=== PATIENT | male | born 1985 | race Caucasian/White ===

== ENCOUNTER 2019-12-31 12:57 | Emergency (ER) | payer OTHER, SELFPAY ==
[2019-12-31] VITALS (7 sets, daily range): BP systolic 127–183; BP diastolic 53–108; PULSE 88–106; RESP 15–26; TEMP 37.1; O2SAT 95–100; BMI 30.4
--- NOTE | 2019-12-31 13:24 | CT_ITS ---
STUDY: CT ABDOMEN AND PELVIS WITH CONTRAST REASON FOR EXAM: Male, 34 years old. RECTAL PAIN RADIATION DOSAGE (If Supplied By Facility): CTDIvol = ( 13.02 ) mGy, DLP = ( 888.61 ) mGycm TECHNIQUE: Transaxial images were obtained from the dome of the diaphragm to the symphysis pubis without oral contrast. Oral and amp; IV GASTROGRAFIN and amp; 100ML ISOVUE 370 was administered. Sagittal and coronal images were reconstructed. Individualized dose optimization techniques were used for this CT. COMPARISON: None. FINDINGS: The visualized lung bases are unremarkable. The visualized portions of the heart are within normal limits. Normal liver. Normal gallbladder and extrahepatic biliary system. Normal spleen. Normal pancreas. Normal bilateral adrenal glands. Normal right kidney. Normal left kidney. Normal visualized stomach. Normal small intestine. There is asymmetric wall thickening at the rectum and surrounding perirectal mesentery stranding/inflammation. Mild presacral fluid. 5.3 x 3.5 x 3.0 cm collection may be an abscess at the anus. The appendix is visualized and appears normal. Normal abdominal aorta. Normal inferior vena cava. Normal retroperitoneum. Normal urinary bladder. Normal abdominal wall. Normal osseous structures. CT/Abdomen/Pelvis WITH Contrast IMPRESSION: There is asymmetric wall thickening at the rectum and surrounding perirectal mesentery stranding/inflammation. Mild presacral fluid. A collection may be an abscess at the anus. Electronically Signed: Brooks Murillo DO at 14:56 EDT Tel [phone], Service support ,
[2019-12-31] MEDS: 0.9% Normal Saline 1,000 ML 125 ML IV (13:52)
[2019-12-31 14:01] LABS: Absolute Lymphocyte Count 1.33 X10^3/uL (0.83-4.51); Absolute Neutrophil Count 8.2 X10^3/uL (2.0-7.7); Basophil# 0.05 X10^3/uL; Basophil% 0.4 % (0-1); Eosinophil# 0.05 X10^3/uL; Eosinophils% 0.4 % (0-5); Hematocrit 42.8 % (40-54); Hemoglobin 14.4 g/dL (13.0-16.5); Lymphocyte # 1.33 X10^3/ul (4.0); Lymphocyte % 11.8 % (19-41); Mean Corp Hgb Conc 33.6 g/dL (32-36); Mean Corpuscular Hgb 30.3 pg (27.0-32.0); Mean Corpuscular Volume 90.1 fL (80-94); Mean Platelet Vol. 9.1 fl (6.2-12.0); Monocyte# 1.61 X10^3/uL; Monocyte% 14.3 % (0-10); NRBC Flagged by Analyzer 0 % (0-5); Neutrophil # 8.16 X10^3/uL (2.7-7.7); Neutrophil % 72.7 % (47-70); POSITIVE DIFFERENTIAL YES; Platelet Count 267 K/mm3 (150-450); RBC Distribution Width CV 12.1 % (11.6-14.6); RBC Distribution Width SD 39.5 fl (35.1-43.9); Red Blood Count 4.75 M/mm3 (4.6-6.2); White Blood Count 11.3 K/mm3 (4.4-11.0)
[2019-12-31 14:12] LABS: Anion Gap 6 (5-15); BUN 10 mg/dL (7-18); BUN/Creat Ratio 10.8 RATIO (10-20); Calcium,Total 9.8 mg/dL (8.5-10.1); Chloride 102 mmol/L (98-107); Creatinine, Serum 0.93 mg/dL (0.70-1.30); EST Glomerular Filtration Rate 99 mL/min (>60); Est Glom Filt Rate - Afr Amer 119 mL/min (>60); Estimated Creatinine Clearance 118.08 ml/min; Glucose 109 mg/dL (74-106); Potassium 3.7 mmol/L (3.5-5.1); Sodium Level 136 mmol/L (136-145)
[2019-12-31 14:19] LABS: Differential Indicated SCAN CRITERIA MET; Erythrocyte Sedimentation Rate 22 mm/hr (0-15)
[2019-12-31 14:20] LABS: Bacteria 0 SEEN /hpf (None Seen); Red Blood Cells-Urine 0 SEEN /hpf (0-5); Squamous Epithelial Cells - UA 0 SEEN /hpf (0-5)
[2019-12-31 14:20] LABS: Lactic Acid 1.5 mmol/L (0.4-1.9)
[2019-12-31 14:23] LABS: Color, Urine Yellow (Yellow); Glucose, Dipstick Normal (Normal); Ketone-Dipstick 15 mg/dl (Negative); Leukocyte Esterase-Dipstick 25 /ul (Negative); Nitrite-Dipstick Negative (Negative); Occult Blood-Urine Negative /ul (Negative); Protein-Dipstick 30 mg/dl (Negative); Urine Clarity Clear (Clear); Urine Urobilinogen Normal (Normal)
[2019-12-31 14:25] LABS: Urine Bilirubin Dipstick 1 mg/dL (Negative)
[2019-12-31 14:29] LABS: Mucous, Urine 2+ /hpf (<or=2+); White Blood Cells 0-5 SEEN /hpf (0-5)
[2019-12-31 14:31] LABS: Differential Comment SCANNED
--- NOTE | 2019-12-31 15:22 | ED.DCSUM_ITS ---
- ER Visit Summary Date of Service: 12/31/19 Chief Complaint: [Rectal pain] History of Present Illness: The patient is a 34 M [presents to the emergency department with pain in his rectum for the last 6 days. Patient denies any trauma to his rectum. He denies inserting anything into his rectum. Patient's had subjective fever for several days and yesterday he bought a thermometer and noted that his temperature was up to 102.5. Patient states that a week ago he had some blood in his stool but then that resolved. Patient denies any abdominal pain. He has no medical history. No family history of inflammatory bowel disease. Denies urinary symptoms.] Physical Examination: [HEENT-PERRLA, EOMI. Cranial nerves II through XII grossly intact. TMs clear. Mucous membranes moist. No adenopathy. Cardiovascular-regular rate and rhythm without murmur or ectopy Lungs-clear to auscultation, chest wall stable without crepitus or subcu emphysema Abdomen-normoactive bowel sounds, soft, nontender, no rebound or rigidity, no peritoneal signs. Rectal exam-patient has a fullness to the posterior wall of the rectum that is very tender to palpation. Patient otherwise had no rectal masses noted. No fissures noted. No hemorrhoids noted. Extremities-intact ?4, normal range of motion, normal pulses, atraumatic] Test Results: [ABC with differential obtained showed a white blood cell count of 11.3, hemoglobin 14, hematocrit 43, platelet 267. Chemistries unremarkable. LFTs were normal. Sed rate was 22. CT scan of the abdomen pelvis with IV and p.o. contrast ordered showed thickening of the rectum with suspected rectal abscess.] Emergency Department Course and Treatment: [Patient was ordered Zosyn 4.5 g IV. Patient did not want anything for pain. I did discuss case with surgeon on- call Dr. Karon Garcia who will present to the emergency department to evaluate patient.] Treatment Plan: [Patient will be evaluated by the surgeon in the department. Care of patient turned over to evening physician] Disposition: [Pending evaluation by surgeon] Impression: [Proctitis Rectal abscess] This note was generated with [employer] dictation software. It may contain incorrect words, spelling, and punctuation that were not noted in review of the chart prior to signing <Luana Samaniego - Last Filed: 12/31/19 16:00> - ER Visit Summary Date of Service: 12/31/19 Chief Complaint: [] History of Present Illness: The patient is a 34 M [] Physical Examination: [] Test Results: [] Emergency Department Course and Treatment: Patient was signed out to me by the morning physician. The surgeon wanted to do an exam under anesthesia with incision and drainage. Risks benefits and alternatives to propofol were given. Patient signed consent. The patient was given a total of 400 mg of propofol and 40 to 50 mg increments to obtain adequate sedation. His blood pressure and pulse ox were normal throughout the procedure. The surgeon was able to drain a lot of purulent material from the area. Patient will be given Augmentin and oxycodone for home. He is going to follow-up Thursday morning with the surgeon Treatment Plan: [] Disposition: Discharge Impression: Rectal abscess This note was generated with [employer] dictation software. It may contain incorrect words, spelling, and punctuation that were not noted in review of the chart prior to signing <Hua Kuo - Last Filed: 12/31/19 16:57> ED Disposition <Luana Samaniego - Last Filed: 12/31/19 16:00> <Hua Kuo - Last Filed: 12/31/19 16:57> - Plan for ED Patient: Disposition: Home or Assisted Living Instructions: ED ABSCESS Laisha-Anal IandD Prescriptions: Amox/Clavulanate Tablet [Augmentin Tablet] 875 mg PO Q12H #20 tab Transmission Status: Pending to [facility] Oxycodone [Oxyir] 5 mg PO Q6H PRN PRN 3 Days #12 tablet PRN Reason: Pain/Inflammation Transmission Status: Sent to [facility] Referrals: Care Physician,No Primary [Primary Care Provider] -
--- NOTE | 2019-12-31 15:44 | PCM.HP.STD ---
History of Present Illness Date of Admission: 12/31/19 - DC'd from ER same day The patient is a 34 year old M presented to the ER due to rectal pain starting on Thursday. Patient states on Thursday or he started to feel feverish, but did not take his temperature. Patient denies any respiratory symptoms. Patient's labs revealed a leukocytosis of 11.2. CT abdomen pelvis was done which showed a likely rectal abscess. Patient states he is never had a colonoscopy before. His dad did have Crohn's disease and was diagnosed with colon cancer at age 53. Patient states in the last 6 months he would occasionally have bright red blood per rectum a good amount for 1 to 2 days and then it would stop. Patient denies having any pain at this time denies any abdominal pain. Patient denies any rectal bleeding since Thursday when the rectal pain began. Past Medical History Past Medical History (Chronic Problems): Chronic Problems (Last Reviewed 01/02/20 @ 09:59 by Maritza Hope) FH: colon cancer in first degree relative <60 years old (Chronic) Father diagnosed at age 53 FHx: Crohn's disease (Chronic) Father Medical History: Medical History (Last Reviewed 01/02/20 @ 09:59 by Maritza Hope) Rectal abscess (Acute) K61.1 Allergies No Known Allergies Allergy (Verified 12/31/19 12:58) Home Medications: Ambulatory Orders Medication Instructions Recorded Amox/Clavulanate Tablet [Augmentin 875 mg PO Q12H #20 tab 12/31/19 Tablet] Oxycodone [Oxyir] 5 mg PO Q6H PRN PRN 3 Days #12 tab 12/31/19 Surgical History: Surgical History (Last Reviewed 01/02/20 @ 09:59 by Maritza Hope) History of incision and drainage (Acute) Z98.890 Rectal abscess- 12/31/19 Psychiatric History: No pertinent psych hx Smoking Status: Never smoker - *Family History Maternal History Items: No pertinent history Review of Systems Constitutional: Denies: Anorexia Eyes: Denies: Blurred vision HEENT: Denies: Difficulty Swallowing Cardiovascular: Denies: Chest Pain Respiratory: Denies: Shortness of Breath Gastrointestinal: Reports: Hematochezia, - - Rectal pain. Denies: Abdominal Pain Genitourinary: Denies: Dysuria Skin: Denies: Rash Neurological: Denies: Balance problems Psychiatric: Denies: Anxiety, Depression Hematologic/ Lymphatic: Denies: Easy Bruising VTE Information - Inpt Only VTE Present on Admission: No - Physical Exam Vitals/I&O's: Vital Signs Temp Pulse Resp BP Pulse Ox 98.8 F 95 17 150/105 H 95 12/31/19 12:58 12/31/19 12:58 12/31/19 12:58 12/31/19 12:58 12/31/19 12:58 Oxygen Delivery Method Room Air Weight: 218 lb 11.177 oz Body Mass Index (BMI) 30.4 General: Alert, Oriented x3, Cooperative, No apparent distress HEENT: Atraumatic Lungs: Normal air movement Cardiovascular: Regular rate Abdomen: Soft, Non Tender, Non-Distended, - - Rectal exam under anesthesia patient does have fullness about 4-8 cm in the anus at about 9:00. No obvious hemorrhoids or fissures appreciated. Extremities: No clubbing, No cyanosis, No edema Skin: No rashes Neurological: Cranial nerves II-XII grossly intact Psych/Mental Status: Normal Affect Laboratory Results 12/31/19 13:45: WBC 11.3 H, RBC 4.75, Hgb 14.4, Hct 42.8, MCV 90.1, MCH 30.3, MCHC 33.6, RDW Std Deviation 39.5, RDW Coeff of Pasquale 12.1, Plt Count 267, MPV 9.1, Immature Gran % (Auto) 0.400, Neut % (Auto) 72.7 H, Lymph % (Auto) 11.8 L, Teller % (Auto) 14.3 H, Eos % (Auto) 0.4, Baso % (Auto) 0.4, Absolute Neuts (auto) 8.2 H, Absolute Lymphs (auto) 1.33, Nucleated RBC % 0, Differential Comment SCANNED, Diff Path Review December, ESR 22 H 12/31/19 13:45: Sodium 136, Potassium 3.7, Chloride 102, Carbon Dioxide 28.0, Anion Gap 6, BUN 10, Creatinine 0.93, Estim Creat Clear Calc 118.08, Est GFR (MDRD) Af Amer 119, Est GFR (MDRD) Non-Af 99, BUN/Creatinine Ratio 10.8, Glucose 109 H, Calcium 9.8 12/31/19 13:45: Lactic Acid 1.5 12/31/19 14:15: Urine Color Yellow, Urine Clarity Clear, Urine pH 6.0, Ur Specific [place] 1.020, Urine Protein 30 H, Urine Glucose (UA) Normal, Urine Ketones 15 H, Urine Occult Blood Negative, Urine Nitrite Negative, Urine Bilirubin 1 H, Urine Urobilinogen Normal, Ur Leukocyte Esterase 25 H, Urine RBC 0 SEEN, Urine WBC 0-5 SEEN, Ur Squamous Epith Cells 0 SEEN, Urine Bacteria 0 SEEN, Urine Mucus 2+ Current Medications Sodium Chloride () 1,000 mls @ 125 mls/hr IV .Q8H [facility], [facility]–1983 Last Admin: 12/31/19 13:52 Dose: 125 mls/hr Documented by: Iopamidol (Contrast Allergy Check) 0 ml IV X1 [facility], [facility] Last Admin: 12/31/19 14:21 Dose: Not Given Documented by: Assessment/Plan All Active Problems (Last Reviewed 01/02/20 @ 09:59 by Maritza Hope) History of incision and drainage (Acute) Rectal abscess (Acute) 34-year-old male with rectal pain, likely rectal abscess per CT 1. Discussed patient plan to exam under anesthesia, possible I&D of rectal abscess. Includes risk including but not limited to bleeding, and infection, need for further surgery, etc. Patient no further questions this time. Patient is aware that we are planning to do a follow-up colonoscopy in the future. His father also had Crohn's disease as well as colon cancer in his early 50s. Patient has never had a colonoscopy. Did discuss with patient that due to his family history of Crohn's disease also location of the abscess he may also need future referral to colorectal. Addendum: Patient tolerated procedure well with propofol. Did place Surgifoam gauze in the rectum and ABD at the anus. Will have patient follow-up in office on Thursday at 9-10 AM, we will plan to have him call the office first. Discussed with patient that he will likely have some bright red blood per rectum initially however if it continues and it is heavy would recommend coming back to the ER. Patient was sent home on Augmentin 875 p.o. twice daily for 10 days as well as some oxycodone. Recommend patient do sitz baths 2-3 times daily. Also recommend patient no drinking alcohol or any blood thinners. Karon Garcia M.D. Pager: [phone] [facility] [address] [place] [address], [address] [place] [address] Office: [phone] Essential Procedure Criteria Procedure Essential: Yes Criteria Note: On 11/01/2019 the [facility] ([facility]) Public Order signed by [facility] Director Jackelyn Jordan M.D., regarding the Management of Non-Essential Surgeries and Procedures for the purpose of preserving Personal Protective Equipment (PPE) and critical hospital capacity and resources within [place] went into effect as of 11/02/2019 at 5:00PM. According to the [facility] Public Order: This action will remain in full force and effect until the State of Emergency declared by the Governor no longer exists or the Director of the [facility] rescinds or modifies this Order.. This [facility] order stated all non-essential or elective surgeries and procedures that utilize PPE should be delayed unless there is undue risk to the current or future health of a patient. After reviewing the aforementioned [facility] Public Order and the patients clinical case, I have determined that the scheduled procedure meets the criteria to go forward. Risk to Patient if Procedure Delayed: Risk of rapidly worsening to severe symptoms if delayed Office Visits / Consults: [id number] OP Consult L2
[2019-12-31] MEDS: Propofol 200 MG/20 ML Vial IV BOLUS (16:50)
--- NOTE | 2019-12-31 17:00 | OP.PCM_ITS ---
Report of Operation Date of Procedure: 12/31/19 Pre-Operative Diagnosis: Rectal pain, possible rectal abscess Post-Operative Diagnosis: Rectal submucosal abscess Surgery/Procedure Performed:: Exam under anesthesia, incision and drainage of rectal submucosal Type of Anesthesia:: Local MAC Anesthesiologist: Hua Kuo Special Medications: Patient will be getting Zosyn 3.375 g IV x1 in ER Specimen's removed: Rectal abscess sent for deep culture Estimated Blood Loss (mL): 15 Description of Procedure: Consent was signed patient was in the left lateral decubitus position. MAC anesthesia with propofol was induced by Dr. Kuo the ER physician. Digital rectal exam did feel the area of fullness at 9:00 with 12:00 being posterior which was about 4 cm from the anal verge and did extend to maybe about 8 cm. The Phillip rectal retractors were used to expose this area. An 18-gauge needle and syringe were used to aspirate which did show purulent material. Next a small incision was made in the rectal mucosa with 11 blade scalpel there was drainage of a good amount of purulent material about 13 cc, cavity was probed fo r any loculations. The rectum was irrigated with saline and suctioned. Patient did have a small amount of oozing and still had a little bit of induration in the more proximal rectum on exam, but no further purulent drainage. Large Surgifoam gauze was placed in the rectum and ABD pad at the anus with mesh underwear to hold in place. Patient tolerated procedure well. - Complications none
[2020-01-02 11:50] LABS: Pathologist Review Reviewed
== END 2019-12-31 18:29 | disposition home or self-care (01) ==
PROVIDERS: Emergency Provider Emergency Medicine
DX: K62.89 Other specified diseases of anus and rectum (principal); K61.1 Rectal abscess; Z80.0 Family history of malignant neoplasm of digestive organs
CPT/HCPCS: 10060; 74177; 80048; 81001; 83605; 85025; 85652; 87070; 87075; 87076; 87077; 87186; 87205; 96361; 96365; 99152; 99282; J7030